=== PATIENT | male | born 1945 | race Caucasian/White ===

== ENCOUNTER 2020-04-07 06:07 | Emergency (ER) | payer MEDICARE, SELFPAY ==
[2020-04-07] VITALS (25 sets, daily range): BP systolic 113–149; BP diastolic 63–79; PULSE 42–67; RESP 10–21; TEMP 35.9; O2SAT 93–100
--- NOTE | ~2020-04-07 | XR_ITS ---
EXAMINATION: XR chest 2V DATE: 04/07/2020 08:39 INDICATION: Nontraumatic right upper back pain. TECHNIQUE: Frontal and lateral views of the chest were obtained. COMPARISON: Chest 2 views 03/15/2013, chest CT 06/19/2018 FINDINGS: Calcified pulmonary nodules and calcified hilar lymph nodes are consistent with old granulo matous disease. There are lucencies in the upper lungs, consistent with emphysema. There is mild atel ectasis in right midlung zone and left lower lung zone. No pleural effusion or pneumothorax. The hear t size is normal. There is mild chronic anterior wedging of multiple thoracic vertebral bodies. IMPRESSION: 1. Mild atelectasis in right midlung zone and left lower lung zone. 2. Emphysema. Reviewed, dictated and finalized at location A.
--- NOTE | 2020-04-07 07:12 | PC.NURSE ---
PT AT BEDSIDE ATTEMPTING TO GIVE URINE SAMPLE, WILL OBTAIN BLOOD WHEN HE IS FINISHED.
[2020-04-07 07:29] LABS: Basophils Absolute Auto 0.1 K/mm3 (0.0-0.1); Basophils Percent Auto 0.8 % (0.2-1.2); Eosinophils Absolute Auto 0.1 K/mm3 (0-0.3); Eosinophils Percent Auto 2.2 % (0-4.4); Hematocrit 41.2 % (42.0-52.0); Hemoglobin 13.8 g/dL (14.0-18.0); Immature Granulocyte Absolute 0.02 K/mm3 (0.00-0.031); Immature Granulocyte Percent A 0.3 % (0-0.5); Lymphocytes Absolute Auto 1.54 K/mm3 (0.9-3.2); Lymphocytes Percent Auto 24.6 % (18.3-44.2); Mean Corpuscular HGB Conc 33.5 g/dl (32-36); Mean Corpuscular Hemoglobin 33.3 pg (26-34); Mean Corpuscular Volume 99.5 fl (80-100); Mean Platelet Volume 10.5 fl (7.4-10.4); Monocytes Absolute Auto 0.6 K/mm3 (0.1-0.6); Neutrophils Absolute Auto 3.9 K/mm3 (1.3-6.7); Neutrophils Percent Auto 62.1 % (45.5-73.1); Platelet Count Result 184 k/mm3 (150-375); Red Blood Count 4.14 M/mm3 (4.6-6.20); Red Cell Distribution Width 12.1 % (11.5-14.5); White Blood Count 6.3 K/mm3 (4.5-10.0)
[2020-04-07 07:46] LABS: Alanine Aminotransferase 20 U/L (4-50); Albumin Level 4.1 g/dL (3.5-5.1); Alkaline Phosphatase 80 U/L (38-126); Anion Gap 7 mmol/L (8-16); Aspartate Amino Transferase 27 U/L (17-59); Bilirubin,Total 0.9 mg/dL (0.2-1.3); Blood Urea Nitrogen 29 mg/dL (9-20); Calcium 9.4 mg/dL (8.4-10.2); Carbon Dioxide 32 mmol/L (22-30); Chloride 103 mmol/L (98-107); Estimated CRCL calculation 43 ml/min; Estimated Glomerular Filt Rate 42; Glucose 123 mg/dL (75-110); Lipase 36 U/L (23-300); Potassium 4.3 mmol/L (3.4-5.0); Sodium 142 mmol/L (137-145)
[2020-04-07 07:55] LABS: Add Urine Microscopic? YES; Appearance Urine Clear (Clear); Bilirubin Urine Negative (Negative); Blood Urine 1+ (Negative); Color Urine Straw (Yellow); Glucose Urine UA Negative (Negative); Ketones Urine Negative (Negative); Leukocyte Esterase Ur Negative LEU/UL (Negative); Nitrate Urine Negative (Negative); Protein Urine Negative (Negative); RBC Urine 0-2 /hpf (0-2); Specific Grav Ur 1.009 (1.001-1.035); Urobilinogen Urine Negative mg/dL (<2.0); WBC Urine 0-3 /hpf
--- NOTE | 2020-04-07 08:19 | ECG_ITS ---
Measurements Intervals [place] Rate: 50 P: -46 MD: 163 QRS: 12 QRSD: 106 T: 120 QT: 449 QTc: 412 Interpretive Statements SINUS BRADYCARDIA WITH SINUS ARRHYTHMIA ATRIAL PREMATURE COMPLEXES EARLY PRECORDIAL R/S TRANSITION ST-T WAVE ABNORMALITY IN ANTERIOR LEADS- CONSIDER ISCHEMIA BASELINE ARTIFACT- I, II, III, AVR, AVL, AVF, V1 ABNORMAL ECG Electronically Signed On 04-07-2020 15:25:24 CDT by Yan King D.O.
--- NOTE | 2020-04-07 08:21 | ED.GENADULT ---
HPI - General Adult General Chief complaint: Unspecified Stated complaint: right side/back pain Time Seen by Provider: 04/07/20 07:37 Source: patient Mode of arrival: ambulatory Limitations: no limitations History of Present Illness HPI narrative: 74 years old white male presents with constant dull aching pain at the right thoracic back pain. Worse laying down, may be better sitting or standing. Patient denies any fever, chills, nausea, vomiting, shortness of breath, chest pain, headache, sore throat, abdominal pain, diarrhea, constipation, urinary symptoms, any new recent physical activity or similar symptoms in the past. Patient drove himself to the emergency room. Patient did not take any pain medication in the last 3 to 4 days because he believes it does not work. History of diabetes, hyperlipidemia, does not smoke and drinks occasionally, on baby aspirin. Related Data Allergies Allergy/AdvReac Type Severity Reaction Status Date / Time No Known Allergies Allergy Unverified 04/07/20 06:34 Review of Systems Review of Systems: Narrative: CONSTITUTIONAL: Denies fever, chills, or sweats. EYES: Denies visual changes, redness, or discharge. ENT: Denies rhinorrhea, congestion, sore throat, or otalgia. CARDIOVASCULAR: Denies chest pain, palpitations, or edema. RESPIRATORY: Denies cough or dyspnea. GASTROINTESTINAL: Denies abdominal pain, nausea, vomiting, or diarrhea. GENITOURINARY: Denies dysuria or hematuria. SKIN: Denies rash or itching. MUSCULOSKELETAL: Denies back pain, joint pain, or myalgia. NEUROLOGIC: Denies headache, numbness, or weakness. PSYCHIATRIC: Denies anxiety or depression. PMFSH Past Medical History Medical History (Updated 04/07/20 @ 12:09 by Latesha Corona MD) Diabetes mellitus, new onset Hyperlipidemia Social History Social History (Updated 04/07/20 @ 08:24 by Latesha Corona MD) Social History: Patient does not smoke and drinks occasionally Second hand tobacco smoke exposure: No Gender identity (if verbalized by the patient): Male Exam Narrative: Exam Narrative: General appearance: Well-developed, well-nourished Skin: Normal color Head: Normocephalic, nontraumatic Eyes: Clear conjunctiva ENT: Oropharynx normal, ears normal, nose normal Neck: Supple, nontender Chest and respiratory: Airway patent, no respiratory distress, no accessory muscle use Heart: Regular rate/rhythm Abdomen: Soft, nontender, no organomegaly, quiet bowel sounds Vascular: Normal peripheral pulses, normal capillary refill. 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, no gross motor deficit Course Course Emergency Course: Stable Vital Signs Vital signs: Vital Signs Temperature 35.9 C L 04/07/20 06:26 Pulse Rate 48 L 04/07/20 06:26 Respiratory Rate 20 04/07/20 06:26 Blood Pressure 149/63 H 04/07/20 06:26 Pulse Oximetry 99 04/07/20 06:26 Temperature 35.9 C L 04/07/20 06:26 Pulse Rate 45 L 04/07/20 10:45 Respiratory Rate 14 04/07/20 11:15 Blood Pressure 125/77 04/07/20 11:01 Pulse Oximetry 99 04/07/20 11:15 Medical Decision Making [facility] Narrative Medical decision making narrative: Patient presents with constant pain at the right thoracic back, denies any trauma, physical exam showed tenderness mainly at the right the scapula, musculoskeletal pain was my concern versus shingles. Blood work-up showed no acute abnormality, D-dimer is negative, Chest x-ray showed no acute abnormality, EKG on arr
--- NOTE | 2020-04-07 08:34 | PC.NURSE ---
PT TO RADIOLOGY AT THIS TIME, WILL MEDICATE PER PROVIDER ORDER UPON RETURN.
[2020-04-07] MEDS: HYDROcodone/acetaminophen (*CRX) 5-325 MG TABLET 1 TAB PO (08:40)
--- NOTE | 2020-04-07 08:53 | PC.NURSE ---
MEDIC STUDENT NICK ATTEMPTED IV X2, PT NOT WANTING ANOTHER STICK UNLESS ERP GARCIA ORDER IVP MEDS.
[2020-04-07 09:15] LABS: Partial Thromboplastin Time 32.6 SECONDS (22.3-36.8)
[2020-04-07 09:17] LABS: D Dimer 0.46 ug/mL (<0.48)
[2020-04-07 09:22] LABS: Troponin I < 0.012 ng/mL (0.000-0.034)
[2020-04-07 11:29] LABS: Erythrocyte Sedimentation Rate 12 mm/hr (0-20)
== END 2020-04-07 12:20 | disposition home or self-care (01) ==
PROVIDERS: General Practice; Emergency Provider Emergency Medicine
DX: M54.6 Pain in thoracic spine (principal); R00.1 Bradycardia, unspecified; E11.9 Type 2 diabetes mellitus without complications; E78.5 Hyperlipidemia, unspecified; Z79.82 Long term (current) use of aspirin; J43.9 Emphysema, unspecified
CPT/HCPCS: 36415; 71046; 80053; 81001; 83690; 84484; 85025; 85380; 85610; 85652; 85730; 93005; 99284; A9270

== ENCOUNTER 2020-05-23 12:29 | Outpatient (CLI) | payer MEDICARE, SELFPAY ==
--- NOTE | ~2020-05-23 | CT_ITS ---
EXAMINATION: CT abdomen pelvis wo con DATE: 05/23/2020 13:06 INDICATION: Right upper quadrant abdominal pain. TECHNIQUE: Computed tomography (CT) of the abdomen and pelvis was performed without intravenous contr ast. Automated exposure control and iterative reconstruction technique were employed. The dose-length product was 1187.10 mGy-cm. COMPARISON: CT abdomen and pelvis 02/26/2019 FINDINGS: The visualized portions of the lung bases demonstrate emphysema and mild atelectasis. No pl eural effusion. The heart demonstrates left atrial enlargement. There are coronary artery calcificati ons. No pericardial effusion. The liver and gallbladder are normal. Calcifications in the spleen are consistent with old granulomatous disease. The pancreas, adrenal glands, and kidneys are normal. Ther e is no urolithiasis. The prostate is moderately enlarged. There is diverticulosis of the colon witho ut evidence of diverticulitis. There are no dilated loops of bowel. The appendix is not visualized. T here is a diverticulum of the second portion of the duodenum. There are no pathologically enlarged ly mph nodes. There is no free intraperitoneal fluid. 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 There are chronic bilateral L5 pars defects with 6 mm anterolisthesis of L5 on S1. There is se jus lumbar spondylosis. There are bridging endplate osteophytes at multiple levels in the thoracic s pine, consistent with diffuse idiopathic skeletal hyperostosis (DISH). IMPRESSION: 1. Stable 3.9 cm fusiform aneurysm of infrarenal aorta. Reviewed, dictated and finalized at location A. 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
== END 2020-05-23 12:30 | disposition home or self-care (01) ==
LOC: ANHIMG 12:41
DX: R10.9 Unspecified abdominal pain (principal); N32.3 Diverticulum of bladder; I25.10 Atherosclerotic heart disease of native coronary artery without angina pectoris; D73.89 Other diseases of spleen; J43.9 Emphysema, unspecified; I49.1 Atrial premature depolarization; K57.30 Diverticulosis of large intestine without perforation or abscess without bleeding; I74.09 Other arterial embolism and thrombosis of abdominal aorta; J98.11 Atelectasis; N40.0 Benign prostatic hyperplasia without lower urinary tract symptoms; M47.817 Spondylosis without myelopathy or radiculopathy, lumbosacral region; M47.815 Spondylosis without myelopathy or radiculopathy, thoracolumbar region
CPT/HCPCS: 74176

== ENCOUNTER 2020-06-09 08:44 | Outpatient (CLI) | payer MEDICARE, SELFPAY ==
--- NOTE | ~2020-06-09 | US_ITS ---
US abdomen complete EXAMINATION: US Abdomen Complete INDICATION: Abdomen pain PROCEDURE: Realtime High Resolution abdomen ultrasound. COMPARISON: CT dated 05/23/2020 FINDINGS: There are possible gallbladder septations which may represent normal folds. There is an ech ogenic focus adjacent to the gallbladder fold without posterior shadowing.. Common bile duct measure s 5 mm. Liver echotexture within normal limits without focal mass. Pancreas within normal limits. Pancreati c tail is obscured by bowel gas. Spleen contains calcified granulomas. Renal echotexture is within n ormal limits bilaterally without hydronephrosis, contour deforming mass or renal stone. Right kidney measures 9.4 cm. Left kidney measures 9.8 cm. Aorta is not well visualized due to bowel gas. IVC is within normal limits. Portal vein is patent. No sonographic Schwartz's sign indicated by the technologist. IMPRESSION: 1: Possible gallbladder septation versus gallbladder fold. Adjacent echogenic focus noted without sha dowing, most likely polyp or sludge. Reviewed, dictated and finalized at location A. 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 Adjacent echogenic f ocus noted without shadowing, most likely polyp or sludge.
== END 2020-06-09 08:45 | disposition home or self-care (01) ==
DX: R10.9 Unspecified abdominal pain (principal); R93.89 Abnormal findings on diagnostic imaging of other specified body structures
CPT/HCPCS: 76700

== ENCOUNTER 2021-11-16 17:30 | Inpatient (IN) | payer MEDICARE, SELFPAY ==
[2021-11-16] VITALS (8 sets, daily range): BP systolic 152–196; BP diastolic 80–104; PULSE 60–73; RESP 16–18; TEMP 36.2–37.1; O2SAT 94–100; BMI 33.7
--- NOTE | ~2021-11-16 | NM_ITS ---
EXAMINATION: NM kamaljit stress w perfusion DATE: 11/17/2021 15:43 INDICATION: Chest pain TECHNIQUE: Rest images were obtained following intravenous administration of 9.9 mCi Tc99m tetrofosmi n (Myoview). The patient was infused intravenously with Lexiscan (Regadenoson). Then, 31.6 mCi Tc99m tetrofosmin (Myoview) was administered intravenously, and stress images were obtained in supine posit ion. No prone imaging obtained. Data was reconstructed into short axis and horizontal and vertical lo ng axis SPECT images. Gated SPECT images were also obtained. COMPARISON: None. FINDINGS: Fixed moderate perfusion defect at the basilar inferolateral segments consistent with infar ct. No reversible perfusion defects to suggest ischemia. There is normal left ventricular chamber si ze, wall motion and ejection fraction. Left ventricular ejection fraction measures 69%. IMPRESSION: 1. Small moderate severity infarct at the basilar inferolateral segments. 2. Left ventricular ejection fraction measuring 69%. Reviewed, dictated and finalized at location B.
--- NOTE | ~2021-11-16 | CT_ITS ---
EXAMINATION: CTA chest EXAM DATE: 11/16/2021 18:49 INDICATION: pulse defcit, chest pain . TECHNIQUE: Computed tomographic angiography (CTA) of the chest was performed with 100 mL Omnipaque-30 0 intravenous contrast. Automated exposure control and iterative reconstruction technique were employ ed. The dose-length product was 801.93 mGy-cm. Maximum intensity projection 3D-reconstructions of the aorta and other arteries were constructed by the technologist on a separate workstation. COMPARISON: CTPA 06/19/2018. FINDINGS: Late opacification of the aorta but still adequate for diagnosis. Excellent pulmonary arter ial opacification. 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 Ascending thora cic aorta is dilated to 4 cm. No dissection. Normal arch anatomy. Mild atelectatic calcifications of the arch. Moderate calcification at the origin of the right subclavian artery without significant ken nosis. Scanning was performed to the mid celiac artery which appears patent but is incompletely evalu ated. Bibasilar scar/atelectasis. Emphysematous change. There are no pleural or pericardial effusions . Tracheobronchial tree is patent. There is no mediastinal, hilar or axillary lymphadenopathy. There is no pneumothorax. Heart normal in size. There is moderate coronary arterial calcification , arterial sclerosis. Upper abdomen is unremarkable. There is thoracic spondylosis without osteobl astic or osteolytic lesions identified. IMPRESSION: No aortic dissection. No acute pulmonary embolism. Reviewed, dictated and finalized at location K.
--- NOTE | ~2021-11-16 | XR_ITS ---
EXAMINATION: XR chest 2V Exam Date/Time: 11/16/2021 17:45 CDT HISTORY: RT SIDE CP, SOB, HX BLOOD CLOT 8 YEARS AGO Comparison: 04/07/2020. RESULT: Lines, tubes, and devices: None. Lungs and pleura: Clear. Cardiomediastinal silhouette: Stable cardiomediastinal silhouette. Other: No acute osseous or upper abdominal finding. IMPRESSION: No acute cardiopulmonary process. Reviewed, dictated and finalized at location K.
--- NOTE | 2021-11-16 17:32 | ECG_ITS ---
Measurements Intervals [place] Rate: 57 P: 117 GA: 178 QRS: 0 QRSD: 109 T: 117 QT: 421 QTc: 412 Interpretive Statements SINUS BRADYCARDIA MINIMAL Q WAVES- HIGH LATERAL LEADS ST-T WAVE ABNORMALITY IN ANT/HIGH LAT LEADS- CONSIDER ISCHEMIA ABNORMAL ECG Electronically Signed On 11-16-2021 20:14:35 CDT by Yan King D.O.
[2021-11-16 18:21] LABS: Basophils Absolute Auto 0.1 K/mm3 (0.0-0.1); Basophils Percent Auto 0.6 % (0.2-1.2); Eosinophils Absolute Auto 0.2 K/mm3 (0-0.3); Eosinophils Percent Auto 2.1 % (0-4.4); Hematocrit 41.7 % (42.0-52.0); Immature Granulocyte Absolute 0.03 K/mm3 (0.00-0.031); Immature Granulocyte Percent A 0.4 % (0-0.5); Lymphocytes Absolute Auto 1.95 K/mm3 (0.9-3.2); Lymphocytes Percent Auto 24.2 % (18.3-44.2); Mean Corpuscular HGB Conc 33.6 g/dl (32-36); Mean Corpuscular Hemoglobin 33.3 pg (26-34); Mean Platelet Volume 10.1 fl (7.4-10.4); Monocytes Absolute Auto 0.7 K/mm3 (0.1-0.6); Monocytes Percent Auto 9.1 % (2.6-8.5); Neutrophils Absolute Auto 5.1 K/mm3 (1.3-6.7); Neutrophils Percent Auto 63.6 % (45.5-73.1); Platelet Count Result 217 k/mm3 (150-375); Red Blood Count 4.21 M/mm3 (4.6-6.20); Red Cell Distribution Width 13.5 % (11.5-14.5); White Blood Count 8.1 K/mm3 (4.5-10.0)
--- NOTE | 2021-11-16 18:24 | ED.CHESTPAIN ---
HPI - Chest Pain General Chief Complaint: Chest Pain Stated Complaint: chest pain Time Seen by Provider: 11/16/21 18:03 History of Present Illness HPI narrative: Patient is a 75-year-old male with a history of blood clot, hypertension, diabetes, hyperlipidemia, here for evaluation of right-sided chest pain that he noticed an hour and a half ago. Patient describes the pain as a pressure, has been constant, and is always on the right side of his chest. Does note the pain is possibly worse with respirations, but denies shortness of breath. The pain is not associated with any nausea, diaphoresis, headaches, visual changes. Patient has not taken any medication for this pain. Does report a previous similar sensation with his blood clot, and he is not currently anticoagulated. Denies any calf pain or swelling bilaterally. Also notes he had high blood pressure at home despite being compliant with his medications, unsure which ones he takes. Related Data Home Medications Medication Instructions Recorded Confirmed aspirin 81 mg tablet,delayed 81 mg PO DAILY 11/16/21 11/16/21 release (Aspirin Low Dose) atorvastatin 80 mg tablet 80 mg PO DAILY 11/16/21 11/16/21 duloxetine 30 mg capsule,delayed 30 mg PO BID 11/16/21 11/16/21 release lamotrigine 100 mg tablet 100 mg PO BID 11/16/21 11/16/21 latanoprost 0.005 % eye drops 1 drp EACH EYE QPM 11/16/21 11/16/21 levothyroxine 100 mcg tablet 100 mcg PO DAILY 11/16/21 11/16/21 (Levoxyl) melatonin 5 mg tablet 5 mg PO HS PRN Insomnia 11/16/21 11/16/21 metformin 500 mg tablet 500 mg PO DAILY 11/16/21 11/16/21 methocarbamol 750 mg tablet 750 mg PO HS 11/16/21 11/16/21 mirabegron 50 mg tablet,extended 50 mg PO DAILY 11/16/21 11/16/21 release 24 hr (Myrbetriq) mirtazapine 15 mg tablet 15 mg PO HS 11/16/21 11/16/21 omeprazole 40 mg capsule,delayed 40 mg PO HS 11/16/21 11/16/21 release oxycodone 10 mg tablet,crush 10 mg PO HS 11/16/21 11/16/21 resistant,extended release 12 hr pregabalin 75 mg capsule 75 mg PO BID 11/16/21 11/16/21 tamsulosin 0.4 mg capsule 0.4 mg PO HS 11/16/21 11/16/21 Allergies Allergy/AdvReac Type Severity Reaction Status Date / Time No Known Allergies Allergy Unverified 04/07/20 06:34 Review of Systems Review of Systems: Gen.: Denies fevers or chills Eyes: Denies eye pain or visual change ENT: Denies congestion Respiratory: Denies shortness of breath or cough CV: Reports chest pain. GI: Denies abdominal pain nausea, emesis or diarrhea denies burning, urgency, frequency or hematuria Musculoskeletal: Denies back pain or muscle pain Neuro: Denies numbness, tingling, weakness or focal weakness Skin: Denies rash Except as documented, all other systems reviewed and negative [facility] Past Medical History Medical History Diabetes mellitus, new onset Hyperlipidemia Social History Social History (Updated 04/07/20 @ 08:24 by Latesha Corona MD) Social History: Patient does not smoke and drinks occasionally Smoking packs per day: 1 Smoking cigarettes per day: 20.0 Years smoked: 30 Smoking pack-years: 30.00 Smoking status: Former smoker Tobacco type: cigarettes Second hand tobacco smoke exposure: No Alcohol intake: former Substance use type: does not use Gender identity (if verbalized by the patient): Male Spiritual care concerns: No Exam Narrative: APPEARANCE: Uncomfortable appearing, writhing on bed. Head: normocephalic and atraumatic. EYES: PERRLA/EOMI, conjunctivae clear NOSE: No nasal drainage EARS: External ear normal in appearance THROAT: Oropharynx is clear. Mucous membranes are moist. NECK: Supple. No adenopathy, no masses. RESPIRATORY: Airway patent, respirations nonlabored. Clear to auscultation bilaterally, no rales, rhonchi, wheezing. CARDIOVASCULAR: 2+ radial pulse in the left, 1+ radial pulse on the right. Regular rate and rhythm without murmurs, rubs, or gal
[2021-11-16 18:33] LABS: Alanine Aminotransferase 20 U/L (6-50); Albumin Level 4.6 g/dL (3.5-5.1); Alkaline Phosphatase 105 U/L (38-126); Anion Gap 9 mmol/L (8-16); Aspartate Amino Transferase 32 U/L (17-59); Bilirubin,Total 0.8 mg/dL (0.2-1.3); Blood Urea Nitrogen 23 mg/dL (9-20); Calcium 8.7 mg/dL (8.4-10.2); Carbon Dioxide 23 mmol/L (22-30); Chloride 106 mmol/L (98-107); Estimated CRCL calculation 41 ml/min; Estimated Glomerular Filt Rate 39; Glucose 105 mg/dL (65-110); Lipase 66 U/L (23-300); Potassium 4.6 mmol/L (3.4-5.0); Sodium 138 mmol/L (137-145)
[2021-11-16 18:42] LABS: Troponin I 0.023 ng/mL (0.000-0.034)
[2021-11-16 18:51] LABS: INR 1.1; Prothrombin Time 13.5 Seconds (11.1-14.7)
[2021-11-16 18:52] LABS: Partial Thromboplastin Time 31.5 SECONDS (22.3-36.8)
[2021-11-16] MEDS: ASPIRIN 81 MG CHEWABLE TABLET 324 MG PO (20:20)
[2021-11-16 21:16] LABS: Troponin I 0.019 ng/mL (0.000-0.034)
[2021-11-16 22:07] LABS: SARS-CoV-2 RNA PCR Negative
--- NOTE | 2021-11-16 22:42 | ADMGEN ---
This patient, Eleazar Carbajal, was admitted to IMU Room 205-02 on 11/16/21 at 2220. Patient/family oriented to hospital policies and general routines including ID bracelet, bed and alarms, visiting hours, pain management, procedures, bathroom and other care routines, personal items, smoking policy, room service/diet, and visiting hours. Information on how to activate the Rapid Response Team has been discussed. Patient/Family are encouraged to report perceived risks to care and to ask questions if they do not understand what they are told or what they should do.
[2021-11-17] VITALS (9 sets, daily range): BP systolic 137–175; BP diastolic 62–92; PULSE 60–81; RESP 16–22; TEMP 36.4–36.7; O2SAT 96–100
--- NOTE | 2021-11-17 00:15 | PM.IMHP ---
H&P: HPI History of Present Illness Date/Time: 11/17/21 00:15 Chief Complaint: Chest pain. Narrative: This is a 75-year-old male with past medical history significant for hypertension, pulmonary embolism, dyslipidemia, hypothyroidism, peripheral neuropathy, gastroesophageal reflux disease, benign prostatic hyperplasia. Patient presents to the emergency room after new onset of chest pain along the thoracic wall which is dull and aching in nature or for the last hour or so patient states that this felt just like when he had his acute blood clot to his lungs and decided to come to the emergency room for the evaluation of these. Patient was in the shower when these of cared did not have any syncope or near syncope or dizziness or nausea or vomiting or abdominal pain or palpitations or diaphoresis or changes in his vision. Patient has been in his usual state of health he denies any fevers, rigors, chills, cough, sputum production, calves pain, PND, or orthopnea. Patient underwent CTA for evaluation of recurrence of pulmonary embolism which did not show any acute blood clots present in the lungs. Patient has been admitted for further evaluation management and treatment. Review of Systems Review of Systems: Patient comes to the emergency room for evaluation of dull achy chest pain along the thoracic wall. Constitutional: Constitutional: Denies chills, Denies excessive sweating, Denies fatigue, Denies fever(s) and Denies night sweats Eyes: Eyes: Denies change in vision ENT: Denies dysphagia, Denies vertigo, Denies dizziness, Denies nasal congestion, Denies nasal discharge, Denies nasal obstruction and Denies odynophagia Cardiovascular: Cardiovascular: Reports chest pain, Denies diaphoresis, Denies syncope, Denies edema, Denies claudication, Denies leg edema, Denies lightheadedness, Denies radiating jaw, neck or arm pain, Denies palpitations, Denies dyspnea on exertion and Denies paroxysmal nocturnal dyspnea Respiratory: Respiratory: Denies chest congestion, Denies cough, Denies hemoptysis, Denies pain on inspiration, Denies pain with cough and Denies dyspnea Gastrointestinal: Gastrointestinal: Denies abdominal pain, Denies dyspepsia, Denies heartburn, Denies diarrhea and Denies vomiting Musculoskeletal: Musculoskeletal: Denies myalgias, Denies arthralgias, Denies joint swelling, Denies limited range of motion and Denies neck pain Integumentary/Breasts: Skin/Breast: Denies rash Neurologic: Denies vertigo, Denies dizziness, Denies focal weakness and Denies Sensory deficit (Neuro) Psychiatric: Psychiatric: Reports no additional psychiatric complaints and Reports as per HPI Endocrine: Endocrine: Denies cold intolerance, Denies fatigue, Denies flushing, Denies heat intolerance, Denies polyphagia, Denies polydipsia and Denies palpitations Hematologic/Lymphatic: Hematologic/Lymphatic: Reports no additional hematologic/lymphatic complaints and Reports as per HPI Allergic/Immunologic: Allergic/Immunologic: Reports no additional allergic/immunologic complaints and Reports as per HPI PMFSH Past Medical History Medical History (Updated 11/17/21 @ 16:22 by Fabián Ojeda MD) CKD (chronic kidney disease) Diabetes mellitus, new onset Hyperlipidemia Social History Social History (Updated 04/07/20 @ 08:24 by Latesha Corona MD) Social History: Patient does not smoke and drinks occasionally Smoking packs per day: 1 Smoking cigarettes per day: 20.0 Years smoked: 30 Smoking pack-years: 30.00 Smoking status: Former smoker Tobacco type: cigarettes Second hand tobacco smoke exposure: No Alcohol intake: former Substance use type: does not use Gender identity (if verbalized by the patient): Male Spiritual care concerns: No Meds Home Medications and Allergies Home Medications Medication Instructions Recorded Confirmed Type aspirin 81 mg tablet,delayed 81 mg PO DAILY 11/16/21 11/16/21 History release (Aspirin Low Do
[2021-11-17 00:17] LABS: Troponin I 0.026 ng/mL (0.000-0.034)
[2021-11-17] MEDS: LEVOTHYROXINE SODIUM 100 MCG TABLET PO (06:03)
[2021-11-17 08:35] LABS: Anion Gap 6 mmol/L (8-16); Blood Urea Nitrogen 24 mg/dL (9-20); Carbon Dioxide 28 mmol/L (22-30); Chloride 104 mmol/L (98-107); Estimated CRCL calculation 40 ml/min; Estimated Glomerular Filt Rate 39; Glucose 117 mg/dL (65-110); Potassium 5.1 mmol/L (3.4-5.0); Sodium 138 mmol/L (137-145)
--- NOTE | 2021-11-17 10:41 | EST_ITS ---
Patient Info Name: Eleazar Carbajal Age: 75 years : 1945 Gender: Male Ht: 70 in Wt: 234 lbs BSA: 2.32 m2 HR: 64 bpm BP: 138 / 65 mmHg Heart Rhythm: Sinus Rhythm Exam Date: 11/17/2021 2:45 PM Exam Location: [facility] Stress Patient Status: Inpatient Admit Date: 11/16/2021 Staff Ordering Physician: Fabián Ojeda MD Attending Provider: Guillermo Fowler MD Exercise Technologist: Alad Powers CT Exercise Physician: Christ Mirza MD Exam Type: CA stress kamaljit w NM Study Info Indications R07.9 - Chest pain, unspecified A regadenoson stress test was performed. Summary 1. Please correlate with nuclear medicine images, reported separately. 2. Non diagnostic ST-T wave changes with lexiscan. Protocol: Lexiscan Stress ECG Details Stage: REST Duration (min): 3 min : 8 sec HR (bpm): 63 SBP (mmHg): 138 DBP (mmHg): 65 Stage: REST Duration (min): 12 min : 3 sec HR (bpm): 65 SBP (mmHg): 153 DBP (mmHg): 70 Stage: STAGE 1 Duration (min): 0 min : 59 sec HR (bpm): 65 SBP (mmHg): 153 DBP (mmHg): 70 Stage: RECOVERY Duration (min): 1 min : 0 sec HR (bpm): 81 SBP (mmHg): 153 DBP (mmHg): 70 Stage: RECOVERY Duration (min): 2 min : 0 sec HR (bpm): 78 SBP (mmHg): 174 DBP (mmHg): 72 Stage: RECOVERY Duration (min): 3 min : 0 sec HR (bpm): 74 SBP (mmHg): 208 DBP (mmHg): 70 Stage: RECOVERY Duration (min): 3 min : 30 sec HR (bpm): 73 SBP (mmHg): 208 DBP (mmHg): 70 Rest HR: 65 bpm Peak HR: 85 bpm Rest Sys BP: 153 mmHg Peak Sys BP: 208 mmHg Max Pred HR: 143 bpm % Max Pred HR: 59 % Target HR: 122 bpm Max RPP: 17,680 bpm*mmHg Total Time: 1 min : 0 sec Rest Padilla BP: 70 mmHg Peak Padilla BP: 70 mmHg Total Dose: 0.4 mg Resting ECG Normal sinus rhythm. Resting ST/T wave changes. PVC. Stress ECG No abnormal ST/T wave changes with exercise. Arrhythmias Occasional PACs. Report Signatures
[2021-11-17] MEDS: DULoxetine HCL 30 MG CAPSULE.DR PO (12:08)
[2021-11-17] MEDS: PREGABALIN (*CRX) 75 MG CAPSULE PO (12:08)
[2021-11-17] MEDS: lamoTRIgine 100 MG TABLET PO (12:08)
[2021-11-17] MEDS: MIRABEGRON 50 MG ER TABLET PO (12:08)
[2021-11-17 12:43] LABS: Potassium 4.8 mmol/L (3.4-5.0)
--- NOTE | 2021-11-17 16:02 | PM.DS ---
DS: Admitting Diagnosis Discharge Date 11/17/21 Admitting Diagnosis Chest pain DS: Discharge Diagnosis Discharge Diagnosis (1) Chest pain: Code(s): R07.9 - Chest pain, unspecified Status: Acute (2) Diabetes mellitus, new onset: Code(s): E11.9 - Type 2 diabetes mellitus without complications Status: Acute (3) CKD (chronic kidney disease): Code(s): N18.9 - Chronic kidney disease, unspecified Status: Acute (4) Hyperkalemia: Code(s): E87.5 - Hyperkalemia Status: Acute (5) Elevated blood pressure, situational: Code(s): R03.0 - Elevated blood-pressure reading, without diagnosis of hypertension Status: Acute DS: Summary Hospital Course Reason for hospitalization: 75yo male with hx of DM and HLD here for chest pain. Please see H&P for details. Hospital Course: Patient presents to the emergency room with complaints of chest pain. Describes as a constant dull aching pain in the right thoracic area. Pain is positional. He mentions that the chest pain feels very similar to when he had a blood clot in his lung. EKG shows sinus bradycardia rate of 57 with minimal Q-waves in high lateral leads and ST T wave changes in the anterior/high lateral leads. These findings were present by EKG 2020 So felt that patient did not have any acute EKG changes. CBC, PT and PTT were normal. D-dimer was slightly elevated. comprehensive metabolic panel was normal except for BUN of 23 and creatinine 1.7. Patient does have underlying CKD. Potassium was normal on admission but did climbed to 5.1. Possibly related to his diet and renal insufficiency. Repeat potassium was 4.8. COVID test was negative. He had elevated blood pressure but normalized when at rest; he was anxious and felt the elevated blood pressure probably more likely related to the situation and not HTN but plan to have patient check blood pressure at home. Chest x-ray was clear. CTA showed late opacifications of the aorta but still adequate to showed that there is no aortic dissection. He had chronic nonocclusive went in the right upper lobe segmental artery but no acute PEs. Did have emphysematous changes noted. There was moderate coronary artery calcification. Troponin was negative x3. Patient underwent Lexiscan nuclear stress test which showed no diagnostic ST T wave changes. Lexiscan portion showed a fixed moderate perfusion defect at the basilar inferior lateral segments consistent with infarct. There was no reversible perfusion defects to suggest ischemia. His EF was 69%. Patient was informed of all these findings. [place] the chest pain was musculoskeletal in nature. All questions were answered. The patient wanted his PCP notified which was done. Dr Rashid was made aware of the hospital course and above findings. Patient overall did well was able to discharge home on 11/17/2021. Status at Discharge Cognitive/behavioral status at discharge: Stable Time Spent with Patient Time attestation: Total time spent providing and/or coordinating discharge services: 38 minutes Time spent: Greater than 30 minutes Exam Narrative: AF 98.1 173/92 64 16 100% ra Gen - NARD Chest - CTA bilaterally, nml RR CV - RRR S1/S2 Abd - Soft, NT/ND, Positive BS Ext - No pedal edema Psych - Nml mood and affect Skin - Warm and dry DS: Data Data Completed and Pending Labs on day of discharge: Labs from last 24 hours 11/17/21 11/17/21 11/16/21 12:20 08:13 23:51 WBC RBC Hgb Hct MCV MCH MCHC RDW Plt Count MPV Immature Gran % (Auto) Neut % (Auto) Lymph % (Auto) Branch % (Auto) Eos % (Auto) Baso % (Auto) Lymph # (Auto) Branch # (Auto) Eos # (Auto) Baso # (Auto) Abs Immat Gran (auto) Absolute Neuts (auto) Absolute Nucleated RBC Nucleated RBC % PT INR APTT D-Dimer Sodium 138 Potassium 4.8 5.1 H Chloride 104 Carbon Di
== END 2021-11-17 17:21 | disposition home or self-care (01) | DRG 313 ==
LOC: ANHED 18:36 → ANHIMU 22:00
PROVIDERS: Physician Assistant; Admitting Provider Internal Medicine; Emergency Provider Emergency Medicine; Visit Provider Internal Medicine
DX: R07.89 Other chest pain (principal); Z20.822 Contact with and (suspected) exposure to COVID-19; E11.22 Type 2 diabetes mellitus with diabetic chronic kidney disease; N18.9 Chronic kidney disease, unspecified; E11.42 Type 2 diabetes mellitus with diabetic polyneuropathy; R03.0 Elevated blood-pressure reading, without diagnosis of hypertension; E87.5 Hyperkalemia; E78.5 Hyperlipidemia, unspecified; E03.9 Hypothyroidism, unspecified; K21.9 Gastro-esophageal reflux disease without esophagitis; N40.0 Benign prostatic hyperplasia without lower urinary tract symptoms; Z79.82 Long term (current) use of aspirin; Z79.84 Long term (current) use of oral hypoglycemic drugs; Z79.899 Other long term (current) drug therapy; Z86.711 Personal history of pulmonary embolism; Z87.891 Personal history of nicotine dependence
CPT/HCPCS: 36415; 71046; 71275; 78452; 80048; 80053; 83690; 84132; 84484; 85025; 85380; 85610; 85730; 93005; 93017; 99285; A9270; A9502; C9803; J2785; Q9967; U0003; U0005

== ENCOUNTER 2022-05-01 16:56 | Emergency (ER) | payer MEDICARE, SELFPAY ==
--- NOTE | ~2022-05-01 | XR_ITS ---
EXAM: XR wrist RT min 3V DATE: 05/01/2022 17:26 HISTORY: fall, PAIN ACROSS WRIST JOINT . COMPARISON: None available. FINDINGS: Decreased mineralization. Relative widening of the scapholunate interval. No fracture or d islocation. No lytic or blastic lesion. Scattered degenerative changes. No erosion or periosteal de anda ge. Bibasilar calcifications. IMPRESSION: Widened scapholunate interval, may represent acute or chronic scapholunate ligament injur y. No acute fracture. Reviewed, dictated and finalized at location K. E SCENE EVIDENCE TECHNICIAN IMPRESSION: Widened scapholunate interval, may represent acute or chronic scaph olunate ligament injury. No acute fracture.
--- NOTE | ~2022-05-01 | CT_ITS ---
EXAMINATION: CT brain wo con DATE: 05/01/2022 17:16 INDICATION: fall, on blood thinner . TECHNIQUE: Computed tomography (CT) of the head was performed without intravenous contrast. The mA wa s adjusted according to patient size. Iterative reconstruction technique was employed. The dose-lengt h product was 605.33 mGy-cm. COMPARISON: None FINDINGS: No acute intracranial hemorrhage or extra-axial fluid collection. No hydrocephalus, mass, or herniation. No acute ischemic infarct. Unremarkable dural venous sinus attenuation. No acute osseous abnormality. The aerated spaces are clear. Mild atrophy and moderate chronic white matter change. Atherosclerotic intracranial calcification. Bi lateral lens replacements. IMPRESSION: No acute intracranial process. Reviewed, dictated and finalized at location K. [employer]
--- NOTE | ~2022-05-01 | XR_ITS ---
EXAM: XR knee LT 3V DATE: 05/01/2022 17:26 HISTORY: fall, ANTERIOR LACERATION OVER PATELLA . COMPARISON: None available. FINDINGS: Decreased mineralization. No fracture or dislocation. No lytic or blastic lesion. Tricompa rtmental osteoarthritis, severe in the medial compartment. No erosion or periosteal change. Vascular calcifications. Moderate volume joint fluid. Prepatellar soft tissue swelling. IMPRESSION: No acute osseous finding in the left knee. Reviewed, dictated and finalized at location K. D HAND
[2022-05-01 16:58] VITALS: BP 172/73; PULSE 66; RESP 15; TEMP 36.8; O2SAT 97
[2022-05-01 19:15] VITALS: BP 186/89; PULSE 67; RESP 16; O2SAT 95
[2022-05-01 19:17] VITALS: BP 172/91; PULSE 67; RESP 14; O2SAT 97
[2022-05-01 19:32] VITALS: BP 160/99; PULSE 70; RESP 16; O2SAT 100
[2022-05-01 19:47] VITALS: BP 152/81
[2022-05-01 20:02] VITALS: BP 152/81; PULSE 70; RESP 16; O2SAT 100
--- NOTE | 2022-05-01 20:18 | ED.GENADULT ---
HPI - General Adult General Chief complaint: Fall Stated complaint: fall Time Seen by Provider: 05/01/22 19:14 History of Present Illness HPI narrative: This is a 76-year-old male presenting to ED following a fall on thinners. Patient was using a leaf blower on some leaves in his garden earlier today when he tripped. 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 Additionally he was wearing slippers and had been taking multiple oxycodone through the day for hip pain. Patient fell struck his head, his left knee and his right wrist on the ground. He took 2 tramadol after that which is improved his pain. He denies numbness tingling or weakness to any extremity outside of his leftLeg which is chronic. patient denies chest pain, difficulty breathing, abdominal pain or any other physical complaints at this time. Related Data Home Medications Medication Instructions Recorded Confirmed atorvastatin 80 mg tablet 80 mg PO DAILY 11/16/21 11/16/21 duloxetine 30 mg capsule,delayed 30 mg PO BID 11/16/21 11/16/21 release lamotrigine 100 mg tablet 100 mg PO BID 11/16/21 11/16/21 latanoprost 0.005 % eye drops 1 drp EACH EYE QPM 11/16/21 11/16/21 levothyroxine 100 mcg tablet 100 mcg PO DAILY 11/16/21 11/16/21 (Levoxyl) melatonin 5 mg tablet 5 mg PO HS PRN Insomnia 11/16/21 11/16/21 metformin 500 mg tablet 500 mg PO DAILY 11/16/21 11/16/21 methocarbamol 750 mg tablet 750 mg PO HS 11/16/21 11/16/21 mirabegron 50 mg tablet,extended 50 mg PO DAILY 11/16/21 11/16/21 release 24 hr (Myrbetriq) mirtazapine 15 mg tablet 15 mg PO HS 11/16/21 11/16/21 omeprazole 40 mg capsule,delayed 40 mg PO HS 11/16/21 11/16/21 release oxycodone 10 mg tablet,crush 10 mg PO HS 11/16/21 11/16/21 resistant,extended release 12 hr pregabalin 75 mg capsule 75 mg PO BID 11/16/21 11/16/21 tamsulosin 0.4 mg capsule 0.4 mg PO HS 11/16/21 11/16/21 Vitamin B-1 05/01/22 famotidine 20 mg tablet 20 mg PO DAILY 05/01/22 magnesium 400 tablet PO 05/01/22 Allergies Allergy/AdvReac Type Severity Reaction Status Date / Time No Known Allergies Allergy Verified 05/01/22 17:02 Review of Systems Review of Systems: CONSTITUTIONAL: Denies night sweats. EYES: No eye pain ENT: Denies rhinorrhea CARDIOVASCULAR: Denies palpitations RESPIRATORY: Denies hemoptysis GASTROINTESTINAL: Denies hematemesis GENITOURINARY: Denies hematuria. SKIN: Denies rash MUSCULOSKELETAL: Denies myalgia. NEUROLOGIC: Denies weakness. PSYCHIATRIC: Denies delusions [facility] Past Medical History Medical History (Updated 05/01/22 @ 20:26 by Mohsen Batista MD) CKD (chronic kidney disease) Diabetes mellitus, new onset Hyperlipidemia Social History Social History (Updated 04/07/20 @ 08:24 by Latesha Corona MD) Social History: Patient does not smoke and drinks occasionally Smoking packs per day: 1 Smoking cigarettes per day: 20.0 Years smoked: 30 Smoking pack-years: 30.00 Smoking status: Former smoker Tobacco type: cigarettes Second hand tobacco smoke exposure: No Alcohol intake: former Substance use type: does not use Gender identity (if verbalized by the patient): Male Spiritual care concerns: No Exam Narrative: APPEARANCE: No apparent distress. Head: Atraumatic, no hematoma abrasion over EYES: EOMI, pupils are 2 mm, suspect this is due to his opiate use NOSE: Atraumatic NECK: Trachea midline, no midline cervical tenderness, no pain on range of movement of the neck. RESPIRATORY: No increased rate of breathing CARDIOVASCULAR: Skin is well perfused. ABDOMINAL: Non-distended, no guarding or rebound MUSCULOSKELETAl: No obvious deformities, patient has abrasion over his left knee. Patient is stiff due to his chronic neurologic disorder. This is chronic per the patient per his mom and his . There is no effusion or significant pain on movement. Full exam of the right wrist revealed mild swellin
[2022-05-01] MEDS: TETANUS,DIPHTHERIA,AC PERTUSSIS ADULT (0.5 ML) BOOSTRIX IM (20:46)
== END 2022-05-01 21:00 | disposition home or self-care (01) ==
PROVIDERS: Emergency Provider Emergency Medicine
DX: S63.391A Traumatic rupture of other ligament of right wrist, initial encounter (principal); S80.212A Abrasion, left knee, initial encounter; R53.1 Weakness; Z23 Encounter for immunization; I48.91 Unspecified atrial fibrillation; E78.5 Hyperlipidemia, unspecified; E11.44 Type 2 diabetes mellitus with diabetic amyotrophy; E11.22 Type 2 diabetes mellitus with diabetic chronic kidney disease; N18.9 Chronic kidney disease, unspecified; Z87.891 Personal history of nicotine dependence; Z79.84 Long term (current) use of oral hypoglycemic drugs; Z79.01 Long term (current) use of anticoagulants; W01.0XXA Fall on same level from slipping, tripping and stumbling without subsequent striking against object, initial encounter
CPT/HCPCS: 29125; 70450; 73110; 73562; 90471; 90715; 99284